=== PATIENT | female | born 1970 | race Caucasian/White ===

== ENCOUNTER → 2020-09-24 15:26 | Outpatient (CLI) | payer OTHER, BC, SELFPAY ==
--- NOTE | ~2020-09-24 | XR_ITS ---
XR_CERV2-3V_CR 09/24/2020 15:49 Indication: Cervicalgia Procedure: 4 view cervical spine Comparison: No prior studies Findings: Straightening of cervical lordosis. Vertebral body and disc heights are preserved. No fract ure or traumatic malalignment. No prevertebral soft tissue swelling. Odontoid process within normal l imits. Lung apices are normal. Impression: 1: No significant abnormality of the cervical spine. Reviewed, dictated and finalized at location B. OGY LECTURER Impression: 1: No significant abnormality of the cervical spine.
== END ==
PROVIDERS: PCP Family Medicine; Visit Provider Nurse Practitioner Family
DX: M54.2 Cervicalgia (principal)
CPT/HCPCS: 72040

== ENCOUNTER → 2020-10-02 12:33 | Outpatient (CLI) | payer OTHER, BC, SELFPAY ==
--- NOTE | ~2020-10-02 | MR_ITS ---
EXAMINATION: MR cervical spine wo con DATE: 10/02/2020 13:39 INDICATION: Neck pain. Left shoulder pain. TECHNIQUE: Magnetic resonance imaging (MRI) of the cervical spine was performed without intravenous c ontrast. Sequences included sagittal T2-weighted FSE, sagittal STIR FSE, sagittal T1-weighted FSE, ax ial MERGE, and axial T2-weighted FSE. COMPARISON: Cervical spine radiograph 09/24/2020 FINDINGS: There is mild kyphosis of cervical spine. Vertebral body heights and intervertebral disc he ights are normal. The spinal cord signal intensity is normal. The following disc levels are specifica lly discussed: C2-C3: There is a central protrusion. There is no uncovertebral joint osteoarthritis. There is ankylo sis of left facet joint with severe hypertrophy. There is mild left neural foraminal stenosis. There is mild central canal stenosis. C3-C4: The disc does not extend beyond the endplate margin. There is mild left uncovertebral joint os teoarthritis. There is mild bilateral facet joint osteoarthritis. There is mild left neural foraminal stenosis. There is no central canal stenosis. C4-C5: The disc does not extend beyond the endplate margin. There is no uncovertebral joint osteoarth ritis. There is no facet joint osteoarthritis. There is no neural foraminal stenosis. There is no pb tral canal stenosis. C5-C6: The disc is bulging. There is mild bilateral uncovertebral joint osteoarthritis. There is no f acet joint osteoarthritis. There is mild right neural foraminal stenosis. There is mild central canal stenosis. C6-C7: The disc does not extend beyond the endplate margin. There is mild left uncovertebral joint os teoarthritis. There is moderate bilateral facet joint osteoarthritis. There is no neural foraminal st enosis. There is no central canal stenosis. C7-T1: The disc does not extend beyond the endplate margin. There is no uncovertebral joint osteoarth ritis. There is mild bilateral facet joint osteoarthritis. There is no neural foraminal stenosis. The re is no central canal stenosis. IMPRESSION: 1. Mild cervical spondylosis. Reviewed, dictated and finalized at location B. 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
== END ==
PROVIDERS: PCP Family Medicine; Visit Provider Nurse Practitioner Family
DX: M48.03 Spinal stenosis, cervicothoracic region (principal); M47.23 Other spondylosis with radiculopathy, cervicothoracic region
CPT/HCPCS: 72141

== ENCOUNTER → 2022-04-19 15:52 | Outpatient (CLI) | payer OTHER, BC, SELFPAY ==
--- NOTE | ~2022-04-19 | XR_ITS ---
XR knee RT 3V, XR knee LT 3V 04/19/2022 16:17 Indication: Bilateral knee pain Procedure: 3 views each knee Comparison: No prior studies for comparison. Findings: There is anatomic alignment. No significant joint space narrowing. No fracture, subluxation or dislocation. No joint effusion. No focal soft tissue abnormality. No foreign bodies. Impression: 1: No significant bone or joint abnormality. Reviewed, dictated and finalized at location A. Impression: 1: No significant bone or joint abnormality. Impression: 1: No significant bone or joint abnormality.
== END ==
PROVIDERS: PCP Family Medicine; Visit Provider Nurse Practitioner Family
DX: M25.569 Pain in unspecified knee (principal)
CPT/HCPCS: 73562

== ENCOUNTER 2022-05-03 08:53 | Outpatient (CLI) | payer OTHER, BC, SELFPAY ==
[2022-05-03 09:25] LABS: Glucose 103 mg/dL (65-110)
== END 2022-05-03 08:54 | disposition home or self-care (01) ==
PROVIDERS: PCP Family Medicine; Visit Provider Nurse Practitioner Family
DX: R73.09 Other abnormal glucose (principal)
CPT/HCPCS: 36415; 82947

== ENCOUNTER → 2022-05-06 15:51 | Outpatient (CLI) | payer OTHER, BC, SELFPAY ==
--- NOTE | ~2022-05-06 | MR_ITS ---
EXAMINATION: MR knee RT wo con DATE: 05/06/2022 16:26 INDICATION: Right knee pain TECHNIQUE: Magnetic resonance imaging (MRI) of the right knee was performed without intravenous contr ast. Sequences included coronal PD-weighted FSE, coronal PD-weighted FS FSE, sagittal T2-weighted FS E, sagittal PD-weighted FS FSE and axial PD weighted fat saturated FSE. COMPARISON: Right knee radiographs dated 04/11/2022 FINDINGS: Medial compartment: Medial meniscus is normal. Partial-thickness chondral fissuring along the lateral side of the central weightbearing medial femoral condyle. Small region of mild subarticular edema along the medial rim o f the tibial plateau without evident overlying chondromalacia. Lateral compartment: Lateral meniscus is normal. Articular cartilage is normal. Patellofemoral compartment: Shallow partial thickness chondral ulceration and deeper fissuring at the medial patellar facet. Deep chondral ulceration with minimal underlying cortical irregularity at the caudal aspect of the medial trochlea. Ligaments and tendons: Anterior and posterior cruciate ligaments are normal. The medial collateral ligament and fibular ayana ateral ligament complex are normal. The extensor mechanism is normal. The visualized medial and later al hamstring tendons as well as the iliotibial band are normal. Fluid: Physiologic amount of fluid in the joint space. No loose osteochondral bodies identified. Osseous/other: Bone alignment is normal. No fracture or pathologic marrow replacing process. There is edema in the s uperficial suprapatellar fat pad consistent with fat pad impingement syndrome. IMPRESSION: 1. 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 2. Small region of marrow edema along the medial rim of the medial tibial plateau without evident ero gautam or fracture line which could be related to overlying appreciated high-grade chondromalacia, stre ss reaction related to altered stress distribution or post traumatic bone contusion in the appropriat e clinical setting. 3. Edema in the superficial suprapatellar fat pad which can be seen with fat pad impingement syndrome . Reviewed, dictated and finalized at location B. IMPRESSION: 1. Mild medial and patellofemoral osteoarthritis with high-grade chondral malac ia the medial trochlea and moderate grade chondromalacia along the weightbearin g medial femoral condyle and at the medial patellar facet. 2. Small region of marrow edema along the medial rim of the medial tibial plate au without evident erosion or fracture line which could be related to overlying appreciated high-grade chondromalacia, stress reaction related to altered stre ss distribution or post traumatic bone contusion in the appropriate clinical se tting. 3. Edema in the superficial suprapatellar fat pad which can be seen with fat pa d impingement syndrome.
== END ==
PROVIDERS: PCP Family Medicine; Visit Provider Nurse Practitioner Family
DX: M25.369 Other instability, unspecified knee (principal); M25.561 Pain in right knee; M17.11 Unilateral primary osteoarthritis, right knee; M94.261 Chondromalacia, right knee; M79.89 Other specified soft tissue disorders
CPT/HCPCS: 73721

== ENCOUNTER 2022-07-13 16:20 | Outpatient (CLI) | payer OTHER, BC, SELFPAY ==
--- NOTE | ~2022-07-13 | XR_ITS ---
XR knee LT 3V 07/13/2022 16:52 Indication: Left knee pain Procedure: 3 views left knee Comparison: 04/19/2022 Findings: There is anatomic alignment. No significant joint space narrowing. No fracture or traumatic malalignment. No significant joint effusion. No soft tissue abnormalities. Impression: 1: No significant bone or joint abnormality. Reviewed, dictated and finalized at location A. Impression: 1: No significant bone or joint abnormality.
== END 2022-07-13 16:21 | disposition home or self-care (01) ==
PROVIDERS: PCP Family Medicine; Visit Provider Nurse Practitioner Family
DX: M25.562 Pain in left knee (principal)
CPT/HCPCS: 73562

== ENCOUNTER 2022-08-21 08:40 | Outpatient (CLI) | payer OTHER, BC, SELFPAY ==
--- NOTE | ~2022-08-21 | MR_ITS ---
EXAMINATION: MR knee LT wo con DATE: 08/21/2022 09:22 INDICATION: Left knee pain with weightbearing, instability TECHNIQUE: Magnetic resonance imaging (MRI) of the left knee was performed without intravenous contra st. Sequences included axial PD-weighted FS FSE, coronal PD-weighted FSE and PD-weighted FS FSE, sagi ttal PD-weighted FSE, and sagittal T2-weighted FS FSE. COMPARISON: X-ray 07/13/2022. FINDINGS: Medial compartment: Mild degenerative signal change at the junction of the posterior horn and body of the medial meniscus . Suggestion of early extrusion and minimal apical blunting. Mild diffuse cartilage thinning. Lateral compartment: Meniscus intact. Mild diffuse cartilage thinning. Patellofemoral compartment: Cartilage and retinacula intact. Ligaments and tendons: ACL, PCL, MCL, and LCL are intact. Remaining flexor and extensor tendons are intact. Fluid: No significant joint effusion. Multiloculated fluid collection at the medial aspect of the knee, poss ibly emanating from the medial meniscus. Osseous/other: Mild marrow edema in the medial aspect of the medial femoral condyle. IMPRESSION: 1. Likely perimeniscal cyst emanating from the medial meniscus, as can be seen with old healed or occ ult meniscal tears. 2. Mild marrow edema in the medial aspect of the medial femoral condyle, may be secondary to degenera tive meniscal change and/or contusion depending on clinical context. 3. Mild diffuse cartilage thinning in the medial and lateral compartments. Reviewed, dictated and finalized at location K. IMPRESSION: 1. Likely perimeniscal cyst emanating from the medial meniscus, as can be seen with old healed or occult meniscal tears. 2. Mild marrow edema in the medial aspect of the medial femoral condyle, may be secondary to degenerative meniscal change and/or contusion depending on clinic al context. 3. Mild diffuse cartilage thinning in the medial and lateral compartments.
== END 2022-08-21 08:41 | disposition home or self-care (01) ==
LOC: ANHIMG 08:45
PROVIDERS: PCP Family Medicine; Visit Provider Nurse Practitioner Family
DX: M25.562 Pain in left knee (principal); M25.369 Other instability, unspecified knee
CPT/HCPCS: 73721

== ENCOUNTER 2022-09-05 12:46 | Emergency (ER) | payer OTHER, BC, SELFPAY ==
--- NOTE | ~2022-09-05 | CT_ITS ---
EXAMINATION: CT abdomen pelvis wo con DATE: 09/05/2022 13:39 INDICATION: Left flank pain TECHNIQUE: Computed tomography (CT) of the abdomen and pelvis was performed without intravenous contr ast. Automated exposure control and iterative reconstruction technique were employed. The dose-length product was 302.30 mGy-cm. COMPARISON: None FINDINGS: Lung bases are clear. Heart size is normal. No pericardial or pleural effusion. Liver, gallbladder, s pleen, pancreas, bilateral adrenal glands are normal. Kidneys and ureters are normal with no urolithi asis, hydroureteronephrosis or perinephric/ureteral stranding. There are couple small phleboliths in the right hemipelvis posterior to the right ureterovesicular junction. Bladder is normal. The uterus is not identified and has likely been surgically resected. Bowels including the appendix are normal w ith no evident wall thickening or obstruction. No free intraperitoneal gas or fluid. No pathologicall y enlarged abdominal or pelvic lymphadenopathy. Moderate osteoarthritis at the bilateral sacroiliac a nd lower lumbar facet joints. IMPRESSION: 1. No urolithiasis or other acute intra-abdominal/pelvic process. Reviewed, dictated and finalized at location B. Y TELEGRAPHER
[2022-09-05 12:50] VITALS: BP 135/88; PULSE 94; RESP 20; TEMP 37; O2SAT 97
--- NOTE | 2022-09-05 13:20 | ED.BACK ---
HPI - Back Pain/Injury General Chief Complaint: Back Pain/Injury Stated Complaint: back pain Time Seen by Provider: 09/05/22 13:14 History of Present Illness HPI Narrative: Pt presents with intermittent left flank/back pain for 3 days. Pt denies injury. Pt says that sometimes she feels like certain movements make it worse but now it seems to be constant but waxes and wanes in severity and radiates around to groin on left. Pt went to and got sent here after receiving IM toradol. Related Data Home Medications Medication Instructions Recorded Confirmed venlafaxine 37.5 mg 37.5 mg PO DAILY 02/04/21 07/14/22 capsule,extended release 24 hr (Effexor XR) Allergies Allergy/AdvReac Type Severity Reaction Status Date / Time No Known Allergies Allergy Verified 07/13/22 15:12 Review of Systems Review of Systems: All systems reviewed & are unremarkable except as noted in HPI and below PMFSH Past Medical History Medical History BMI 32.0-32.9,adult BMI 33.0-33.9,adult BMI 34.0-34.9,adult Claustrophobia Hx of retained foreign body fully removed Numbness and tingling of leg Wears glasses Surgical History Surgical History History of hysterectomy History of Mohs surgery for squamous cell carcinoma in situ of skin History of tonsillectomy Family History Family History Father Malignant neoplasm of prostate Mother No problems noted. Sibling No problems noted. 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 Gender identity (if verbalized by the patient): Female Exam Const: General: healthy appearing Nutritional Appearance: well nourished Orientation/consciousness: patient oriented x3 Limitations: no limitations Eyes: Conjunctivae: conjunctivae normal EOM: EOMs intact bilaterally Neck: Neck: normal visual inspection Resp: Effort & Inspection: normal respiratory effort Auscultation: clear to auscultation bilaterally Cardio: Rate: regular rate Rhythm: regular rhythm GI: Auscultation: normal bowel sounds Back/Spine/Pelvis: Back: CVA tenderness (left and left sided paraspinous muscle tenderness) Skin: General skin exam: normal color Rashes: no rashes Wounds: no wounds Neuro: General: patient oriented x3, moves all extremities and no focal motor deficits Cranial nerves: Yes Nystagmus not present Speech: normal speech Extrem: General: normal to inspection and no clubbing, cyanosis or edema Psych: Mental Status: mental status grossly normal Affect: normal affect Attitude: cooperative Course Vital Signs Vital signs: Vital Signs Temperature 98.6 F 09/05/22 12:50 Pulse Rate 94 09/05/22 12:50 Respiratory Rate 20 09/05/22 12:50 Blood Pressure 135/88 09/05/22 12:50 Pulse Oximetry 97 09/05/22 12:50 Oxygen Delivery Room Air 09/05/22 12:50 Temperature 98.6 F 09/05/22 12:50 Pulse Rate 94 09/05/22 12:50 Respiratory Rate 20 09/05/22 12:50 Blood Pressure 135/88 09/05/22 12:50 Pulse Oximetry 97 09/05/22 12:50 Oxygen Delivery Room Air 09/05/22 12:50 MDM - Back Pain/Injury MDM Narrative Medical decision making narrative: ct did not show kidney stone so likely muscle will treat accordingly Discharge Plan Discharge Clinical Impression: Strain of lumbar region Patient Disposition: Home, Self-Care Condition: Stable Instructions: Antibiotic Form, Acut
== END 2022-09-05 15:27 | disposition home or self-care (01) ==
PROVIDERS: Emergency Provider Emergency Medicine; PCP Family Medicine
DX: S39.012A Strain of muscle, fascia and tendon of lower back, initial encounter (principal); Z90.710 Acquired absence of both cervix and uterus; Z85.828 Personal history of other malignant neoplasm of skin; F17.210 Nicotine dependence, cigarettes, uncomplicated; X58.XXXA Exposure to other specified factors, initial encounter
CPT/HCPCS: 74176; 99284

== ENCOUNTER 2023-01-06 08:39 | Outpatient (CLI) | payer OTHER, BC, SELFPAY ==
[2023-01-06 09:28] LABS: Cholesterol 272 mg/dL (0-200); HDL Direct 52 mg/dL; Triglycerides 139 mg/dL (<150)
[2023-01-06 09:38] LABS: LDL Cholesterol Direct 166 mg/dL
[2023-01-06 09:53] LABS: Vitamin D 25 Hydroxy 46.4 ng/mL
== END 2023-01-06 08:40 | disposition home or self-care (01) ==
LOC: ANHLAB 08:40
PROVIDERS: PCP Family Medicine; Visit Provider Nurse Practitioner Family
DX: E55.9 Vitamin D deficiency, unspecified (principal); E78.2 Mixed hyperlipidemia
CPT/HCPCS: 36415; 80061; 82306

== ENCOUNTER 2023-01-13 16:33 | Emergency (ER) | payer OTHER, BC, SELFPAY ==
[2023-01-13 16:41] VITALS: BP 121/63; PULSE 88; RESP 16; TEMP 36.8; O2SAT 100
--- NOTE | 2023-01-13 16:48 | ECG_ITS ---
Measurements Intervals [place] Rate: 80 P: 54 GA: 138 QRS: 46 QRSD: 87 T: 11 QT: 360 QTc: 415 Interpretive Statements SINUS RHYTHM NONSPECIFIC ST & T-WAVE ABNORMALITY- ANTEROLAT/INF LEADS NORMAL ECG NO PREVIOUS ECG AVAILABLE FOR COMPARISON Electronically Signed On 01-14-2023 8:15:46 CDT by René Ley D.O.
--- NOTE | 2023-01-13 17:21 | ED.GENADULT ---
HPI - General Adult General Chief complaint: Extremity Injury, Upper Stated complaint: Left Arm Numbness Time Seen by Provider: 01/13/23 17:21 Source: patient, RN notes reviewed and old records reviewed Mode of arrival: ambulatory Limitations: no limitations History of Present Illness HPI narrative: 52year old female presents to [facility] care with complaints of left arm tingling and numbness which started today while sitting at her desk at work. She reports that her thumb and middle finger feel like pins and needles sticking in them. She reports no cardiac history,denies any shortness of breath,chest pain pressure or palpitations, no nausea or sweating. Pateint reports that she does have history of bulging disc in her neck. Patient reports that she has had some increase stress lately and she has been on new diet pill called Contrave for one week. MD complaint: tingling nd numbness to left arm and fingers Onset (ago): hour(s) (this afternoon) Severity scale (1-10): 1 Quality: aching Treatments prior to arrival: none Related Data Home Medications Medication Instructions Recorded Confirmed Contrave 01/13/23 Allergies Allergy/AdvReac Type Severity Reaction Status Date / Time No Known Allergies Allergy Verified 01/05/23 08:09 Review of Systems Review of Systems: CONSTITUTIONAL: Denies fever, chills, or sweats. EYES: Denies visual changes, redness, or discharge. ENT: Denies rhinorrhea, congestion, sore throat, or otalgia. CARDIOVASCULAR: Denies chest pain, palpitations, or edema. RESPIRATORY: Denies cough or dyspnea. GASTROINTESTINAL: Denies abdominal pain, nausea, vomiting, or diarrhea. GENITOURINARY: Denies dysuria or hematuria. SKIN: Denies rash or itching. MUSCULOSKELETAL: Denies back pain, joint pain, or myalgia. NEUROLOGIC: Denies headache, positive for tingling and numbness left arm and fingers, no weakness. PSYCHIATRIC: Reports history of anxiety or depression. 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 Social History Social History Smoking packs per day: 0.5 Smoking cigarettes per day: 10.0 Years smoked: 10 Smoking pack-years: 5.00 Smoking status: Current every day smoker Tobacco type: cigarettes Second hand tobacco smoke exposure: Yes Alcohol intake: current Drinks per week: 2 Substance use: never Substance use type: does not use Lack of Transportation: No Lack of Food: Never True Current Housing: I Have Housing Concerned About Future Housing: No Difficulty Paying Gas/Electric Bills: No Difficulty Paying for Meds: No Currently Unemployed: No Education: Master's Degree or Higher Living arrangements: with family Occupation/Education: occupation 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 There is no relevant family history pertinent to the presenting complaint Exam Narrative: GENERAL: Well-appearing, well-nourished, and in no acute distress. HEAD: Normocephalic, atraumatic. EYES: PERRLA and EOMI. ENT: Piedad thibodeaux
== END 2023-01-13 17:49 | disposition home or self-care (01) ==
PROVIDERS: Emergency Provider Registered Nurse; PCP Family Medicine
DX: M77.8 Other enthesopathies, not elsewhere classified (principal); F17.210 Nicotine dependence, cigarettes, uncomplicated
CPT/HCPCS: 93005; 99213; G0463

== ENCOUNTER 2023-06-29 06:43 | Day surgery (SDC) | payer OTHER, BC, SELFPAY ==
[2023-01-23 15:00] VITALS: BMI 33.3
[2023-03-23 14:17] VITALS: BMI 33.3
[2023-03-23 14:40] VITALS: BMI 33.3
--- NOTE | 2023-03-30 15:40 | P.HP_ITS ---
History of Present Illness History of Present Illness Consent: Risks, benefits, and alternatives have been discussed and questions answered. Patient agrees to proceed with procedure. Chief complaint: Neoplasm Screening Narrative: Lise Sam is a 52 year old female Referred for colon cancer screening. [facility] Past Medical History Medical History BMI 32.0-32.9,adult BMI 33.0-33.9,adult BMI 34.0-34.9,adult BMI 35.0-35.9,adult Claustrophobia Hx of retained foreign body fully removed Numbness and tingling of leg Wears glasses Surgical History Surgical History History of hysterectomy History of Mohs surgery for squamous cell carcinoma in situ of skin History of tonsillectomy Family History Family History Father Malignant neoplasm of prostate Mother Osteoarthritis Sibling No problems noted. Social History Social History Smoking packs per day: 0.5 Smoking cigarettes per day: 10.0 Years smoked: 15 Smoking pack-years: 7.50 Smoking status: Current every day smoker Tobacco type: cigarettes Second hand tobacco smoke exposure: Yes Alcohol intake: current Drinks per week: 2 Alcohol use details: occassional Substance use: never Substance use type: does not use Lack of Transportation: No Lack of Food: Never True Current Housing: I Have Housing Concerned About Future Housing: No Difficulty Paying Gas/Electric Bills: No Difficulty Paying for Meds: No Currently Unemployed: No Education: Master's Degree or Higher Living arrangements: with family Occupation/Education: occupation 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 Gender identity (if verbalized by the patient): Female Spiritual care concerns: No Meds Home Medications and Allergies Home Medications Medication Instructions Recorded Confirmed Type naltrexone 8 mg-bupropion 90 mg 1 tablet PO BID 03/23/23 03/23/23 History tablet,extended release (Contrave) Allergies Allergy/AdvReac Type Severity Reaction Status Date / Time No Known Allergies Allergy Verified 03/23/23 14:33 Assessment and Plan Assessment and plan (1) Screening for malignant neoplasm of colon: Code(s): Z12.11 - Encounter for screening for malignant neoplasm of colon Status: Acute Assessment and Plan: Colonoscopy with possible biopsy or polypectomy or cautery or injection of alvarado bstances.
--- NOTE | 2023-06-28 11:17 | P.HP_ITS ---
History of Present Illness History of Present Illness Consent: Risks, benefits, and alternatives have been discussed and questions answered. Patient agrees to proceed with procedure. Chief complaint: Neoplasm Screening Narrative: Lise Sam is a 52 year old female Referred for colon cancer screening. Review of Systems Review of Systems: All systems reviewed & are unremarkable except as noted in HPI and below PMFSH Past Medical History Medical History BMI 32.0-32.9,adult BMI 33.0-33.9,adult BMI 34.0-34.9,adult BMI 35.0-35.9,adult Claustrophobia Hx of retained foreign body fully removed Numbness and tingling of leg Wears glasses Surgical History Surgical History History of hysterectomy History of Mohs surgery for squamous cell carcinoma in situ of skin History of tonsillectomy Family History Family History Father Malignant neoplasm of prostate Mother Osteoarthritis Sibling No problems noted. Social History Social History Smoking packs per day: 0.5 Smoking cigarettes per day: 10.0 Years smoked: 15 Smoking pack-years: 7.50 Smoking status: Current every day smoker Tobacco type: cigarettes Second hand tobacco smoke exposure: Yes Alcohol intake: current Drinks per week: 2 Alcohol use details: occassional Substance use: never Substance use type: does not use Lack of Transportation: No Lack of Food: Never True Current Housing: I Have Housing Concerned About Future Housing: No Difficulty Paying Gas/Electric Bills: No Difficulty Paying for Meds: No Currently Unemployed: No Education: Master's Degree or Higher Living arrangements: with family Occupation/Education: occupation 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 Gender identity (if verbalized by the patient): Female Spiritual care concerns: No Meds Home Medications and Allergies Home Medications Medication Instructions Recorded Confirmed Type naltrexone 8 mg-bupropion 90 mg 1 tablet PO BID 03/23/23 06/29/23 History tablet,extended release (Contrave) prednisone 10 mg tablet 30 mg PO DAILY #15 tabs 04/24/23 06/29/23 Rx Allergies Allergy/AdvReac Type Severity Reaction Status Date / Time No Known Allergies Allergy Verified 06/29/23 07:14 Exam Const: General: alert Orientation/consciousness: patient oriented x3 Resp: Auscultation: clear to auscultation bilaterally Cardio: Rhythm: regular rhythm GI: GI Palp: Yes Soft to palpation and No Tenderness to palpation present (GI) Neuro: General: patient oriented x3 Assessment and Plan Assessment and plan (1) Screening for malignant neoplasm of colon: Code(s): Z12.11 - Encounter for screening for malignant neoplasm of colon Status: Acute Assessment and Plan: Colonoscopy with possible biopsy or polypectomy or cautery or injection of substances.
--- NOTE | 2023-06-29 07:21 | P.PNAN_ITS ---
Anes - Initial Pre Proc Eval Procedure: Operation Date: 06/29/23 08:30 Proposed Procedures p Screening Colonoscopy - Anthony Lowe MD Date/Time: 06/29/23 07:21 Surgeon: Anthony Lowe MD Pre Op Diagnosis: Neoplasm Screening Patient Data Age: 52 Gender: F Height: 1.65 m Weight: 91 kg Allergies Allergy/AdvReac Type Severity Reaction Status Date / Time No Known Allergies Allergy Verified 06/29/23 07:14 Home Medications Medication Instructions Recorded Confirmed Type naltrexone 8 mg-bupropion 90 mg 1 tablet PO BID 03/23/23 06/29/23 History tablet,extended release (Contrave) prednisone 10 mg tablet 30 mg PO DAILY #15 tabs 04/24/23 06/29/23 Rx Patient hx anesthesia problems: none Family hx anesthesia problems: none Results Review: All pre-operative results and documents have been reviewed as part of the pre- operative evaluation. [facility] Past Medical History Medical History BMI 32.0-32.9,adult BMI 33.0-33.9,adult BMI 34.0-34.9,adult BMI 35.0-35.9,adult Claustrophobia Hx of retained foreign body fully removed Numbness and tingling of leg Wears glasses Surgical History Surgical History History of hysterectomy History of Mohs surgery for squamous cell carcinoma in situ of skin History of tonsillectomy Family History Family History Father Malignant neoplasm of prostate Mother Osteoarthritis Sibling No problems noted. Social History Social History Smoking packs per day: 0.5 Smoking cigarettes per day: 10.0 Years smoked: 15 Smoking pack-years: 7.50 Smoking status: Current every day smoker Tobacco type: cigarettes Second hand tobacco smoke exposure: Yes Alcohol intake: current Drinks per week: 2 Alcohol use details: occassional Substance use: never Substance use type: does not use Lack of Transportation: No Lack of Food: Never True Current Housing: I Have Housing Concerned About Future Housing: No Difficulty Paying Gas/Electric Bills: No Difficulty Paying for Meds: No Currently Unemployed: No Education: Master's Degree or Higher Living arrangements: with family Occupation/Education: occupation 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 Gender identity (if verbalized by the patient): Female Spiritual care concerns: No Anes - Eval Final PreProcedure Day of Procedure 06/29/23 07:21 Patient weight: obese Heart: regular rate and rhythm Lungs: clear to auscultation Airway: Mallampati scale class II Neurological: alert and oriented Last oral intake: >/= 8 hours ASA classification: II Emergent: no Anesthetic plan: proceed Anesthesia type and monitoring: general GIVS and standard monitoring Results Review: All pre-operative results and documents have been reviewed as part of the pre- operative evaluation. Informed Consent: The patient's anesthetic plan and its attendant risks and benefits were discussed with the patient/family/POA. Questions were solicited and answers provided to the satisfaction of the patient/family/POA.
[2023-06-29 07:23] VITALS: BP 133/79; PULSE 87; RESP 16; TEMP 36.8; O2SAT 98
[2023-06-29] MEDS: LACTATED RINGERS 1,000 ML 150 ML IV CONT (07:24)
--- NOTE | 2023-06-29 08:39 | SUR.OPER ---
Resolution clip placed, [id number], [id number]
[2023-06-29 08:43] VITALS: BP 106/68; PULSE 74; RESP 16; O2SAT 94
[2023-06-29 08:53] VITALS: BP 103/75; PULSE 74; RESP 14; O2SAT 94
[2023-06-29 09:03] VITALS: BP 101/70; PULSE 72; RESP 16; O2SAT 98
--- NOTE | 2023-06-29 13:06 | WPDANESPN ---
Anes - Prog Note Post-Op Date/Time: 06/29/23 13:06 Cardiovascular status: normal Respiratory status: normal Airway patency: baseline Mental status: baseline Post-Op hydration status: normal Vital Signs: Last Vital Signs Temp 36.8 C 06/29/23 07:23 Pulse 72 06/29/23 09:03 Resp 16 06/29/23 09:03 BP 101/70 06/29/23 09:03 Pulse Ox 98 06/29/23 09:03 O2 Del Method Room Air 06/29/23 09:03 Pain Score (VAS): 0 I/O: Intake & Output 06/28/23 06/29/23 06/29/23 23:59 07:59 15:59 Intake Total 800 Balance 800 Post-procedural complaints: none Patient Feedback: Patient satisfied with anesthetic care. Other Findings: Patient vital signs back to baseline. Patient denies nausea and vomiting. Patient's pain under control. Patient OK for discharge.
== END 2023-06-29 09:25 | disposition home or self-care (01) ==
PROVIDERS: PCP Family Medicine; Visit Provider Internal Medicine Gastroenterology
PROC: 0DJD8ZZ Inspection of Lower Intestinal Tract, Via Natural or Artificial Opening Endoscopic (ICD-10-PCS; CPT 45378; principal; 2023-06-29 08:30)
DX: Z12.11 Encounter for screening for malignant neoplasm of colon (principal); D12.5 Benign neoplasm of sigmoid colon; D12.3 Benign neoplasm of transverse colon
CPT/HCPCS: 45385; 45380

== ENCOUNTER 2023-06-29 08:00 | Outpatient (NON) | payer OTHER, BC, SELFPAY | END 2023-06-29 08:01 | disposition home or self-care (01) | PROVIDERS: PCP Family Medicine; Visit Provider Internal Medicine Gastroenterology | DX: Z12.11 Encounter for screening for malignant neoplasm of colon (principal) | CPT/HCPCS: 88305 ==

== ENCOUNTER 2023-12-12 11:20 | Outpatient (CLI) | payer OTHER, BC, SELFPAY ==
--- NOTE | ~2023-12-12 | XR_ITS ---
Right Knee Technique: AP and lateral views were obtained. Clinical History: Pain Findings: No fracture or dislocation is seen. Osseous alignment is anatomic. Joint spaces are preserv ed without degenerative or erosive change. Soft tissues are unremarkable. No joint effusion is seen. Impression: Unremarkable right knee radiographs. Reviewed, dictated and finalized at [facility]. [employer]NAL FACILITIES SPECIALIST Impression: Unremarkable right knee radiographs.
== END 2023-12-12 11:21 | disposition home or self-care (01) ==
LOC: ANHIMG 11:23
PROVIDERS: PCP Family Medicine; Visit Provider Nurse Practitioner Family
DX: M25.361 Other instability, right knee (principal)
CPT/HCPCS: 73560

== ENCOUNTER 2023-12-24 08:35 | Outpatient (CLI) | payer OTHER, BC, SELFPAY ==
--- NOTE | ~2023-12-24 | MR_ITS ---
EXAMINATION: MR knee RT wo con DATE: 12/24/2023 09:00 INDICATION: Pain in unspecified knee. TECHNIQUE: Magnetic resonance imaging (MRI) of the right knee was performed without intravenous contr ast. Sequences included axial PD-weighted FS FSE, coronal PD-weighted FSE and PD-weighted FS FSE, sag ittal PD-weighted FSE, and sagittal T2-weighted FS FSE. COMPARISON: Right knee radiographs 12/12/2023 FINDINGS: Medial compartment: Medial meniscus is normal. There is a subcapital insufficiency fracture of the central articular surf freddy of femoral condyle with surrounding edema-like marrow signal intensity. There is cartilage surfac e irregularity of femoral condyle and tibial condyle. Lateral compartment: The lateral meniscus is normal. Lateral compartment cartilage is normal. Patellofemoral compartment: There is shallow partial-thickness cartilage loss of patellar medial facet. There is focal deep parti al-thickness cartilage loss of medial trochlea in an area spanning 4 mm. Ligaments and tendons: Anterior and posterior cruciate ligaments are normal. Medial collateral ligament is normal. There are changes of prior sprain of fibular collateral ligament characterized by increased signal intensity. There is mild patellar tendinopathy. Fluid: There is a small knee joint effusion. IMPRESSION: 1. Insufficiency fracture of medial femoral condyle involving the central articular surface. 2. Moderate chondrosis of patellofemoral compartment and mild chondrosis of medial compartment. 3. Small knee joint effusion. Reviewed, dictated and finalized at location A. ENT SPECIALIST IMPRESSION: 1. Insufficiency fracture of medial femoral condyle involving the central artic ular surface. 2. Moderate chondrosis of patellofemoral compartment and mild chondrosis of med ial compartment. 3. Small knee joint effusion.
== END 2023-12-24 08:36 | disposition home or self-care (01) ==
PROVIDERS: PCP Family Medicine; Visit Provider Nurse Practitioner Family
DX: M25.361 Other instability, right knee (principal); M25.569 Pain in unspecified knee; M84.451A Pathological fracture, right femur, initial encounter for fracture; M22.2X1 Patellofemoral disorders, right knee; M25.461 Effusion, right knee
CPT/HCPCS: 73721

== ENCOUNTER 2024-06-20 13:53 | Outpatient (CLI) | payer OTHER, BC, SELFPAY ==
--- NOTE | ~2024-06-20 | XR_ITS ---
EXAMINATION: [id number] DATE: 06/20/2024 14:08 INDICATION: Pain in left foot. TECHNIQUE: 3 views of left foot including standing views were obtained. COMPARISON: None. FINDINGS: Pes planus is noted. No fracture. There is mild osteoarthritis of talonavicular joint. Ther e is an enthesophyte of posterior aspect of calcaneal tuberosity. IMPRESSION: 1. Pes planus. 2. Mild osteoarthritis of talonavicular joint. Reviewed, dictated and finalized at location [facility].
== END 2024-06-20 13:54 | disposition home or self-care (01) ==
LOC: ANHIMG 13:53
PROVIDERS: PCP Family Medicine
DX: M19.072 Primary osteoarthritis, left ankle and foot (principal); M21.42 Flat foot [pes planus] (acquired), left foot
CPT/HCPCS: 73630

== ENCOUNTER 2024-08-31 07:49 | Outpatient (CLI) | payer OTHER, BC, SELFPAY ==
[2024-08-31 08:00] LABS: Basophils Absolute Auto 0.1 K/mm3 (0.0-0.1); Basophils Percent Auto 0.6 % (0.2-1.2); Eosinophils Absolute Auto 0.3 K/mm3 (0-0.3); Eosinophils Percent Auto 3.8 % (0-4.4); Hematocrit 50.3 % (37.0-47.0); Hemoglobin 17.5 g/dL (12.0-15.0); Immature Granulocyte Absolute 0.02 K/mm3 (0.00-0.031); Immature Granulocyte Percent A 0.2 % (0-0.5); Lymphocytes Absolute Auto 2.93 K/mm3 (0.9-3.2); Lymphocytes Percent Auto 32.7 % (18.3-44.2); Mean Corpuscular HGB Conc 34.8 g/dl (32-36); Mean Corpuscular Hemoglobin 34.7 pg (26-34); Mean Corpuscular Volume 99.8 fl (80-100); Monocytes Absolute Auto 0.6 K/mm3 (0.1-0.6); Neutrophils Percent Auto 55.7 % (45.5-73.1); Platelet Count Result 238 k/mm3 (150-375); Red Blood Count 5.04 M/mm3 (4.2-5.4); Red Cell Distribution Width 13.4 % (11.5-14.5)
[2024-08-31 08:12] LABS: Alanine Aminotransferase 36 U/L (6-35); Albumin Level 4.6 g/dL (3.5-5.1); Alkaline Phosphatase 49 U/L (38-126); Anion Gap 8 mmol/L (4-12); Aspartate Amino Transferase 25 U/L (14-36); Bilirubin,Total 0.8 mg/dL (0.2-1.3); Blood Urea Nitrogen 14 mg/dL (7-17); Calcium 9.4 mg/dL (8.4-10.2); Carbon Dioxide 23 mmol/L (22-30); Chloride 107 mmol/L (98-107); Cholesterol 246 mg/dL (0-200); Estimated Glomerular Filt Rate > 60; Glucose 95 mg/dL (65-110); HDL Direct 46 mg/dL; Potassium 4.2 mmol/L (3.4-5.0); Sodium 138 mmol/L (137-145); Triglycerides 152 mg/dL (<150)
[2024-08-31 08:23] LABS: LDL Cholesterol Direct 143 mg/dL
[2024-08-31 09:37] LABS: Vitamin D 25 Hydroxy 44.4 ng/mL
== END 2024-08-31 07:50 | disposition home or self-care (01) ==
PROVIDERS: PCP Family Medicine
DX: E55.9 Vitamin D deficiency, unspecified (principal); Z13.29 Encounter for screening for other suspected endocrine disorder; Z13.220 Encounter for screening for lipoid disorders; Z13.1 Encounter for screening for diabetes mellitus; Z13.0 Encounter for screening for diseases of the blood and blood-forming organs and certain disorders involving the immune mechanism
CPT/HCPCS: 36415; 80053; 80061; 82306; 84443; 85025

== ENCOUNTER 2024-10-01 16:06 | Outpatient (CLI) | payer OTHER, BC, SELFPAY ==
--- NOTE | ~2024-10-01 | DEXA_ITS ---
Bone Density Report Name: MARINA MACEDO Age: 54 Sex: Female Ethnicity: White Date of : 1970 Indication: postmenopausal; screening for osteoporosis; hysterectomy; Referring Provider: NNEKA DAUGHERTY Study: Bone densitometry was performed. Exam Date: October 01, 2024 Accession number: [id number] Bone Density: Region BMD T-score Z-score Classification AP Spine(L1-L4) 1.011 -0.3 0.6 Normal Femoral Neck (Left) 0.793 -0.5 0.4 Normal Total Hip (Left) 1.131 1.5 2.1 Normal Femoral Neck (Right) 0.788 -0.5 0.4 Normal Total Hip (Right) 1.120 1.5 2.1 Normal Total Hip Mean 1.125 1.5 2.1 Normal World Health Organization criteria for BMD impression classify patients as: Normal (T-score at or above -1.0), Osteopenia (T-score between -1.0 and -2.5), or Osteoporosis (T-score at or below -2.5). 10-year Fracture Risk: FRAX not reported because: All T-scores for Spine Total, Hip Total, Femoral Neck at or above -1.0 Clinical Information Provided by Patient: Smokes Has used the following medications: HRT (i.e. estrogen/hormone therapy) Has the following medical conditions: Hysterectomy Patient maximum height was 65 Menopause Age: 37 Drinks caffeinated beverages Onset of menses at age 16 Number of children 3 Impression: The patient has normal bone mass. The patient has risk factors, including: smoking. Discussion: BONE DENSITY IS ABOVE THE MINIMUM DESIRABLE LEVEL AT ALL SKELETAL SITES TESTED. This patient?s bone mineral density is above the minimum desirable level (T-score -1.0 or better) at all sites measured. The patient should follow a healthful lifestyle (good nutrition with adequate calcium and vitamin D, and appropriate weight-bearing exercise). Follow-Up: Consider repeating this study in 5 years or sooner if there is some new clinical indication. Reported by: MARTINA on 10/01/2024 4:48:00 PM. Reviewed, dictated and finalized at location [facility]
== END 2024-10-01 16:07 | disposition home or self-care (01) ==
LOC: ANHIMG 16:07
PROVIDERS: PCP Family Medicine
DX: Z78.0 Asymptomatic menopausal state (principal); Z13.820 Encounter for screening for osteoporosis; T07.XXXA Unspecified multiple injuries, initial encounter; Z82.62 Family history of osteoporosis; Z72.0 Tobacco use
CPT/HCPCS: 77080

== ENCOUNTER 2025-10-15 09:12 | Outpatient (CLI) | payer OTHER, BC, SELFPAY ==
--- OUTSIDE RECORDS SUMMARY | 2025-10-15 09:19 | XMS_ITS | Clinical Summary ---
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 Gender Identity Not on file Sexual Orientation Not on file Plan of Treatment Health Maintenance Due Date Last Done Comments Cervical Cancer Screening Pa p Smear (Age 30 to 64) Every 3 Years 1971 Colorectal Cancer Screening Colonoscopy (10 Years) 1971 Annual Physical 1974 Hepatitis C 1989 DTaP, Tdap and Td Vaccines ( 1 - Tdap) 1990 Hepatitis B Vaccines (1 of 3 - 19+ 3-dose series) 1990 Cervical Cancer Screening Pa p with HPV Testing (Age 30 to 64) Every 5 Years 2001 Cervical Cancer Screening wi th HPV 2001 Mammogram Screening 2011 Pneumococcal Vaccine: 50+ Years (1 of 1 - PCV) 2021 Zoster Vaccines (2 of 2) 10/08/2021 08/13/2021 COVID-19 Vaccine (4 - 2024-2 6 season) 2025 08/13/2021, 12/05/2020, 11/14/2020 Influenza Adult (#1) 2025 08/11/2016 Hepatitis A Vaccines Aged Out No long er eligible based on patient's age to complete this topic Meningococcal B Vaccine Aged Out No l onger eligible based on patient's age to complete this topic Meningococcal Vaccine Aged Out No chela shaji eligible based on patient's age to complete this topic RSV Immunizations Under 20 Months Aged Out No longer eligible b ased on patient's age to complete this topic Care Teams Captain Fire Prevention Bureau Relationship Specialty Start Date End Date None, Provider, PCP - General 10/27/21
--- OUTSIDE RECORDS SUMMARY | 2025-10-15 09:19 | XMS_ITS | Clinical Summary ---
Author Organization [facility] [address] Address [address] [place] [address] Phone Care Team Providers Care Hired Help Name Role Phone Neil Ivan MD Primary Care Provider [phone] Allergies No known active allergies Medications cyclobenzaprine (FLEXERIL) 10 mg tablet Take 10 mg by mouth as needed for muscle spasms . Active desoximetasone (TOPICORT) 0.25 % cream desoximetasone 0.25 % topical cream Active meloxicam (MOBIC) 15 mg tablet Take 1 tablet (15 mg total) by mouth daily Active betamethasone dipropionate (DEL-BETA) 0.05 % cream APPLY TO AFFECTED AREA OF TRUNK AND EXTREMITIES TWICE DAILY X2 WEEKS 12/11/19 21 Active venlafaxine XR (EFFEXOR-XR) 37.5 mg 24 hr capsuleIndicatio ns:Menopausal symptoms Take 1 capsule (37.5 mg total) by mouth daily 90 capsule 4 01/05/20 22 Active Additional Information Patient not taking.Reported on 01/10/2025 spironolactone (ALDACTONE) 100 mg tablet Take 1 tablet (100 mg total) by mouth daily 01/03/20 25 Active Active Problems Problem Noted Date Diagnosed Date Actinic keratosis 09/06/2018 Melanocytic neoplasm of skin 01/10/2017 History of basal cell carcinoma (BCC) 11/30/2016 Skin neoplasm 11/30/2016 Benign neoplasm of skin of trunk 11/30/2016 Obesity with body mass index 30 or greater 11/10 Overview (01/27/2017): BMI 30+ - obesity Basal cell carcinoma of skin 01/21/2015 Fibrocystic breast changes 09/03/2013 Overview (01/27/2017): Fibrocystic breast changes Immunizations Immunization Administration Dates Next Due Influenza, Trivalent, Preservative Free, Intramu scular 08/11/2016 Surgical History Surgery Date Site/Laterality Comments OTHER SURGICAL HISTORY Swallowed priyank: Exploratory laparotomy TONSILLECTOMY/ADENOIDECTOMY WISDOM TOOTH EXTRACTION TOTAL ABDOMINAL HYSTERECTOMY Menorrhagia, dysmenorrhea: Hysterectomy: MANSI-LSO URETHRAL SLING 10/23/2023 - 10/22/2024 SALPINGOOPHORECTOMY Left at time of hysterectomy Medical History Medical History Date Comments Hx Other Medical 1972 Swallowed priyank Hx Other Medical 2005 Menorrhagia, dy smenorrhea Family History Medical History Relation Name Comments Prostate cancer Father Cancer, pros christensen; Prostate cancer Father's Brother Heart attack Maternal Grandfather Myocard ial infarction; Diabetes Other 1 Family history of Diabetes mellitus; Other Other 2 No family histo ry of Cancer, breast; Prostate cancer Paternal Grandfather Relation Name Status Comments Father Father's Brother Maternal Grandfather Alive Other 1 Other 2 Paternal Grandfather Social History Tobacco Use Types Packs/Day Years Used Date Smoking Tobacco: Every Day Cigarettes Smokeless Tobacco: Never Tobacco Cessation:Ready to Q uit: Not Asked; Counseling Given: Not Answered Comments:Smoking History Packs/day: 2 Cigarettes Alcohol Use Standard Drinks/Week Comments No 0 (1 standard drink = 0.6 oz pur e alcohol) Comments No Sex and Gender Information Value Date Recorded Sex Assigned at Not on file Legal 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 Gender Identity Female 11/13/2020 11:25 AM 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 Sexual Orientation Straight 11/13/2020 11 :25 AM 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 Not on file Not on file Obstetrics History Para Term AB IAB SAB Ectopic Multiple Livin g Live Births 3 3 3 0 0 3 Date Outcome GA Total Labor Labor/2nd/3rd Weight Sex Type Anes PTL Kaye A1 A5 Name Clin Term Term Term Last Filed Vital Signs Vital Sign Reading Time Taken Comments Blood Pressure 110/62 01/10/2025 3:32 PM CDT Pulse 92 11/04/2020 11:45 AM 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 Temperature 36.3 C (97.3 F) 03/11/2021 9:12 AM CDT Respiratory Rate - - Oxygen Saturation 97% 10/04/2019 7:40 AM 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 Inhaled Oxygen Concentration - - Weight 74.4 kg (164 lb) 01/10/2025 3:32 PM CDT Height 162.6 cm (5' 4) 01/10/2025 3:32 PM CDT Body Mass Index 28.15 01/10/2025 3:32 PM CDT Plan of Treatment Health Maintenance Due Date Last Done Comments Colon Cancer Screening-Colonoscopy 1971 Depression Screening 1971 Hepatitis C Screening 1971 DTaP/Tdap/Td Vaccine (1 - Tdap) 1982 Hepatitis B Screening 1989 Pneumococcal vaccine <65 (1 of 2 - PCV) 1990 Zoster Vaccine (1 of 2) 2021 Influenza Vaccine (#1) 2025 08/11/2016 Breast Cancer Screening-Mammogram 01/10/2026 01/10/2025, 01/10/2024, 01/05/2023, Additional history exists Regular Well Visit/Exam 18-64 01/10/2026, 01/10/2024, 01/05/2023, Additional history exists Procedures Procedure Name Priority Date/Time Associated Diagnosis Comments SCREENING MAMMOGRAM BILATERAL W NICHOLAS Schedule Routine, Read Routine (OP Routine) 01/10/2025 3:15 PM CDT Encounter for screening mammogram for malignant neoplasm of breast from Last 3 Months or Most Recently Relevant to Health Maintenance Results * Screening Mammogram Bilateral W Nicholas (01/10/2025 3:15 PM CDT) Anatomical Region Laterality Modality Breast Bilateral Mammography 01/10/2025 4:37 PM CDT Impressions 01/10/2025 4:37 PM CDT There is no mammographic evidence of malignancy. A 1 year screening mammogram is recommended. BI-RADS: 1 - Negative. The patient has been or will be contacted. The patient will be entered into a reminder system with a target due date of 1 year for her next mammogram. Electronically signed by: Ambreen Kern M.D. Narrative 01/10/2025 4:37 PM CDT EXAMINATION: SCREENING MAMMOGRAM BILATERAL W NICHOLAS ORDERING HEALTHCARE PROVIDER: CAMILA DONNELLY HISTORY: Routine screening mammography. COMPARISON: 01/10/2024, 01/05/2023, 01/04/2022, 01/04/2021, 01/03/2020 TECHNIQUE: CC and MLO views of the bilateral breasts were obtained with digital technique using breast tomosynthesis with C view. Computer aided detection was utilized. FINDINGS: DENSITY: The breasts are heterogeneously dense, which may obscure small masses. BREASTS: There are no suspicious masses, suspicious calcifications, or other suspicious findings in either breast. There has been no suspicious interval change. us Camila Donnelly MD IMG MAMMO PROCEDURES Final Result from Last 3 Months or Most Recently Relevant to Health Maintenance Insurance [facility] CHOICE PLUS [facility] OOS [facility] CHOICE PLUS [facility] CIGNA HEALTHCARE [facility] CHOICE OOS [facility] CHOICE PLUS Care Teams Hired Help Relationship Specialty Start Date End Date Neil Ivan MD PCP - General 11/01/07
--- OUTSIDE RECORDS SUMMARY | 2025-10-15 09:19 | XMS_ITS | Data Portability ---
Author Organization [facility], Telehealth Address [address], [address] [place] [address] Care Team Providers Care Sole Splitter Name Role Phone ROQUE CARMONA Primary Care Provider Assessment Encounter Date Assessment Date Assessment LastModified by Organization Details LastModified Time 05/13/2021 05/13/2021 Seborrheic keratoses - diagnosis reviewed. Pt reassured. Discussed no treatment needed. Benign nevi-discussed not suspicious Angioma - diagnosis reviewed. Patient reassured. Discussed no treatment needed. 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 Use of a broad-spectrum sunscreen SPF 30 or higher recommended. 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 Discussed treatment may be ineffective. Patient elects cryotherapy Cryotherapy x 1 Recommend allow to heal and once healed start otc varun acid soln or gel qd-qod with bandage SK vs lentigo, forehead Not suspicious Recommend monitor for changes Benign nevi-discussed not suspicious Epidermal cyst, noninflamed- diagnosis reviewed. Discussed no treatment needed. History of nonmelanoma skin cancer-no evidence of recurrence fbse 6 mo Photoprotection discussed. Use of a broad-spectrum sunscreen SPF 30 or higher recommended. Not available 11/20/2021 18:07:12 05/16/2022 05/16/2022 Seborrheic keratosis, R medial distal thigh - diagnosis reviewed. Pt reassured. Discussed no treatment needed. Small SK favored, less likely lentigo, central forehead Not suspicious Recommend monitor for changes Benign nevi-discussed not suspicious Angioma - diagnosis reviewed. Patient reassured. Discussed no treatment needed. 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 Use of a broad-spectrum sunscreen SPF 30 or higher recommended. Not available 05/16/2022 11:30:53 11/17/2022 11/17/2022 Verruca vulgaris Site: L palmar 4th finger Discussed viral etiology and contagious nature Discussed possible spontaneous resolution, treatment with otc topical salcyclic acid or cryotherapy. Discussed treatment may be ineffective. Patient elects cryotherapy Cryotherapy x 1 Recommend allow to heal and plan to restart otc varun acid soln or gel qd-qod until resolved Tinea pedis, L plantar and medial ankle-flaring Discussed diagnosis Recommend treatment with antifungal cream on the L medial ankle and bilateral plantar feet Benign nevi-discussed not suspicious Recommend monitor for changes. Angioma - diagnosis reviewed. Patient reassured. Discussed no treatment needed. 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 Use of a broad-spectrum sunscreen SPF 30 or higher recommended. Not available 11/20/2022 16:56:22 04/13/2023 04/13/2023 Folliculitis, buttocks-flaring Discussed diagnosis Discussed option oral or topical abx. Pt elects topical treatment. Recommend use of clindamycin lotion BID with flares Recommend use of benzoyl peroxide 5% wash qd in shower Benign nevi-discussed not suspicious Recommend monitor for changes. Lentigines - diagnosis reviewed. Recommend avoid sun exposure and use sun protection. Recommend monitor for changes. Angioma - diagnosis reviewed. Patient reassured. Discussed no treatment needed. 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 Use of a broad-spectrum sunscreen SPF 30 or higher recommended. Not available 04/13/2023 11:48:36 Plan of Treatment Reminders Order Date Submit Date Provider Last Modified By Organization Details Last Modified Time Details Appointments None recorded. Lab pathology, skin 2021 022 [email or web address], [address], [place], [address], 2 12:06:31 Referral None recorded. Procedures None recorded. Surgeries None recorded. Imaging None recorded. Medication Orders clindamycin 1 % lotion 2022 023 [id number], [address] [place], [address], 3 11:49:14 Naftin 1 % topical gel 2022 023 [email or web address], [facility]5 [facility], [place], [address], 3 14:27:07 Patient TargetsNo targets recorded. Patient InstructionsNo instructions recorded. Reason for Referral None Reported. Results Created Date Observation Date Name Description Value Unit Range Abnormal Flag Note LastModifiedBy Organization Detail LastModifiedTime Result Notes None recorded. Problems Name Problem SNOMED Code Status Onset Date Resolution Date Notes Provider Name and Address Organization Details Recorded Time Basal cell carcinoma of skin 198858464 Active 10/2019 L medial lower eyelid-[facility] han[facility], 11/2016 R shoulder-s up BCC -cx3(bx with Dr. 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 Procedures Surgical History Date Name Laterality Status Provider Name and Address Organization Details Recorded Time 3 Cryosurgery benign lesions 1 completed Sofia Mckeon MD [address] [place] [address], [address], [place], [address], ARTURO Mckeon MD 11/20/2022 16:56:32 2 Cryosurgery benign lesions 1 completed Sofia Mckeon MD [address] [place] [address], [address], [place], [address], ARTURO Mckeon MD 11/20/2021 18:06:34 2 Shave Biopsy single completed Vishal Mckeon MD 11/15/2021 12:09:55 1 Shave Biopsy single completed Sofia Mckeon MD [address] [place] [address], [address], [place], [address], ARTURO Mckeon MD 11/12/2020 18:05:20 8 biopsies- multiple 1 completed Kailey Mckeon MD 11/30/2017 12:01:06 7 cx3 completed Sofia Mckeon MD [address] [place] [address], [address], [place], [address], ARTURO Mckeon MD 01/22/2017 00:17:58 Imaging Results None recorded. Procedure Notes None recorded. Medical Equipment None Reported. Allergies No known drug allergies Medications Name Sig Start Date Stop Date Status Note LastModified by Organization Details LastModified Time cyclobenzap rine 10 mg tablet 10 MG ORALLY THREE TIMES A DAY 2022 active Not Available Not Available Not Avai lable venlafaxine ER 37.5 mg capsule,ext ended release 24 hr TAKE 1 CAPSULE BY MOUTH EVERY DAY active Not Available Not Available No t Available prednisone 10 mg tablet TAKE 3 TABLETS BY MOUTH EVERY DAY active Not Available Not Available No t Available desoximetas one 0.25 % topical cream use to affected areas on the trunk and extremiti es BID x 2 wks with flares 12/11 completed Not Available Not Available Not Available azithromyci n 250 mg tablet 09/06 completed Not Available Not Available Not Available hydrocodone 5 mg-acetamin ophen 325 mg tablet TAKE 1 TABLET BY MOUTH EVERY 6 HOURS NEEDED FOR PAIN 04/13 completed Not Available Not Available Not Available Naftin 1 % topical gel use to the bottoms of feet and inner L ankle bid x 4 wks with flares 2022 active Not Available Not Available Not Avai lable Claritin 10 mg tablet Take 1 tablet every day by oral route. 04/13 completed Not Available Not Available Not Available meloxicam 15 mg tablet TAKE 1 TABLET BY MOUTH EVERY DAY active Not Available Not Available No t Available prednisone 20 mg tablet TAKE 1 TABLET BY MOUTH TWICE A DAY 04/13 completed Not Available Not Available Not Available clobetasol 0.05 % topical cream PLEASE SEE ATTACHED FOR DETAILED DIRECTION S 04/13 completed Not Available Not Available Not Available phentermine 37.5 mg tablet 04/13 completed Not Available Not Available Not Available Efudex 5 % topical cream APPLY A SUFFICIEN T AMOUNT TO COVER THE LESIONS IN THE AFFECTED AREA(S) BY TOPICAL ROUTE 2 TIMES PER DAY x 2 wks on the forehead 07/18 completed Not Available Not Available Not Available erythromyci n 5 mg/gram (0.5 %) eye ointment 05/16 completed Not Available Not Available Not Available betamethaso ne dipropionat e 0.05 % topical cream APPLY TO AFFECTED AREA OF TRUNK AND EXTREMITI ES TWICE DAILY X2 WEEKS 05/16 completed Not Available Not Available Not Available cefuroxime axetil 500 mg tablet 01/17 completed Not Available Not Available Not Available phentermine 37.5 mg capsule TAKE 1 CAPSULE BY MOUTH EVERY DAY MUST TAKE 30 MIN BEFORE OR 1-2 HRS AFTER BREAKFAST 04/13 completed Not Available Not Available Not Available naproxen 500 mg tablet TAKE 1 TABLET BY MOUTH TWICE A DAY 04/13 completed Not Available Not Available Not Available amoxicillin 875 mg-potassiu m clavulanate 125 mg tablet 07/18 completed Not Available Not Available Not Available clindamycin 1 % lotion USE TO THE AFFECTED AREAS ON THE BUTTOCKS ONCE TO TWICE DAILY WITH FLARES active Not Available Not Available No t Available hydrocodone 5 mg-acetamin ophen 300 mg tablet 05/11 completed Not Available Not Available Not Available Naftin 2 % topical gel Use to L medial ankle and bottoms of feet BID x 4 wks 04/13 completed Not Available Not Available Not Available Contrave 8 mg-90 mg tablet,exte nded release TAKE 1 TABLET BY MOUTH TWICE A DAY FOR 2 WEEKS, THEN INCREASE TO 2 TABS TWICE DAILY active Not Available Not Available No t Available Wegovy 0.25 mg/0.5 mL subcutaneou s pen injector 04/13 completed Not Available Not Available Not Available Wegovy 0.5 mg/0.5 mL subcutaneou s pen injector 04/13 completed Not Available Not Available Not Available Flowflex COVID-19 Antigen Home Test kit 04/13 completed Not Available Not Available Not Available Vitals None Recorded Social History Question Answer Notes LastModified by Organizat ion Details LastModified Time Tobacco Smoking Status Former Smoker Noemi martinez, [facility] Mckeon MD 01/06/2017 10:52:05 In The 14 Days Before Symptom Onset, Have You Had Close Contact With A Laboratory-confirm ed COVID-19 While That Case Was Ill? No [email or web address] Information n ot available 05/11/2020 In The 14 Days Before Symptom Onset, Have You Had Close Contact With A Person Who Is Under Investigation For COVID-19 While That Person Was Ill? No [email or web address] Information not available 05/11/2020 Have You Been To An Area Known To Be High Risk For COVID-19? No [email or web address] Information not available 05/11/2020 Does Patient Have Any Fever, Cough, Sore Throat Or New Shortness Of Breath? No [email or web address] Information not available 05/11/2020 What Was The Date Of Your Most Recent Tobacco Screening? 11/15/2021 [email or web address] Information not available 11/15/2021 How Much Tobacco Do You Smoke? No Information not available 11/12/2020 Sun Exposure Moderate Information not available 01/06/2017 Do You Use Sunscreen Routinely? Yes Information not available 01/06/2017 Tanning Bed Exposure Yes Information not available 01/06/2017 How Many Years Have You Smoked Tobacco? 10 Information not available 01/06/2017 Sex: Unknown Functional Status Question Answer Note LastModified by Organizat ion Details LastModified Time What is your level of alcohol consumption? Occasional Information not available 01/06/2017 Do you or have you ever used smokeless tobacco? Never used smokeless tobacco Information not available 11/12/2020 Do you or have you ever used e-cigarettes or vape? Never used electronic cigarettes Information not available 11/12/2020 Mental Status None recorded. Family History Relationship Description Onset Age of this Age Resolved Age Notes LastModified by Organization Details LastModified Time Father Carcinoma of prostate Not available 2016 10:51:36 Paternal Uncle Malignant neoplasm of esophagus Not available 2016 10:51:53 Medical History Condition Response Diabetes N Bleeding Disorder N Arthritis N Hyperthyroidism N Defibrillator N Cancer Y Stroke N Asthma N Hypothyroidism N Lupus N HIV/AIDS N Pacemaker N Anemia N Psoriasis N Hepatitis N Heart Disease N Hypertension N Gynecological HistoryNo gynecological history recorded. 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 Melanocyti c nevus of trunk 861341931 D22.5 Melanocyti c nevus of face 587382515 D22.30 History of malignant neoplasm of skin excluding melanoma 435548472 Z85.828 [id number] Sofia Mckeon MD Main Office [address] [place] [address] 7 11/30/2017 10:51:50 11/30/2017 12:33:30 Neoplasm of uncertain behavior of skin 51056012 D48.5 Melanocyti c nevus of trunk 617931277 D22.5 Senile hyperkeratosis 39 2147050 L82.1 History of malignant neoplasm of skin excluding melanoma 134886091 Z85.828 [id number] Sofia Mckeon MD Main Office [address] [place] [address] 69572-843 7 07/16/2018 10:21:18 07/16/2018 11:25:24 Melanocytic nevus of face 625799602 D22.30 Melanocyti c nevus of trunk 613292087 D22.5 Melanocyti c nevus of skin of thigh 677186599 D22.72 Senile hyperkeratosis 39 2474449 L82.1 History of malignant neoplasm of skin excluding melanoma 705701329 Z85.828 [id number] Sofia Mckeon MD Main Office [address] [place] [address]79[address]613 7 09/06/2018 13:53:07 09/06/2018 14:26:54 Actinic keratosis 437273192 L57.0 [id number] Sofia Mckeon MD Main Office [address] [place] [address] 47978[address] 7 01/14/2019 11:07:42 01/14/2019 12:05:08 Eczema 50543672 L20.84 Melanocyti c nevus of trunk 772703736 D22.5 Melanocyti c nevus of upper limb 630502849 D22.61 History of malignant neoplasm of skin excluding melanoma 279049630 Z85.828 [id number] Sofia Mckeon MD Main Office [address] [place] [address] 83559[address] 7 07/18/2019 10:43:26 07/18/2019 11:08:43 Neoplasm of uncertain behavior of skin 54308957 D48.5 Melanocyti c nevus of trunk 885674752 D22.5 Senile hyperkeratosis 39 6065869 L82.1 History of malignant neoplasm of skin excluding melanoma 385232238 Z85.828 [id number] Sofia Mckeon MD Main Office [address] [place] [address]757[address] 7 05/11/2020 15:49:06 05/11/2020 16:29:29 Eczema 36640757 L20.84 Hemangioma of skin 72862 006 D18.01 Verruca vulgaris 4375102 3 B07.8 History of malignant neoplasm of skin excluding melanoma 164845717 Z85.828 [id number] Sofia Mckeon MD Main Office [address] [place] [address] 63567-681 7 11/12/2020 13:51:47 11/12/2020 14:28:47 Neoplasm of uncertain behavior of skin 15214683 D48.5 Melanocyti c nevus of trunk 082597678 D22.5 Hemangioma of skin 79674 006 D18.01 History of malignant neoplasm of skin excluding melanoma 722782538 Z85.828 [id number] Sofia Mckeon MD Main Office [address] [place] [address] 57345[address]139 7 12/10/2020 15:19:45 12/10/2020 15:42:54 Eczema 57947708 L20.84 Inflamed s eborrheic keratosis 655707675 L82.0 [id number] Sofia Mckeon MD Main Office [address] [place] [address]282[address]788 7 05/13/2021 10:19:00 05/13/2021 10:42:59 Senile hyperkeratosis 554758922 L82.1 Melanocyti c nevus of trunk 256879923 D22.5 Hemangioma 805750466 D18 .00 History of malignant neoplasm of skin excluding melanoma 355143966 Z85.828 [id number] Sofia Mckeon MD Main Office [address] [place] [address] 12065[address]860 7 11/15/2021 11:38:53 11/15/2021 12:32:52 Neoplasm of uncertain behavior of skin 51887815 D48.5 Epidermoid cyst of skin 902875865 L72.0 History of malignant neoplasm of skin excluding melanoma 876555365 Z85.828 Verruca vulgaris 5494523 3 B07.8 [id number] Sofia Mckeon MD Main Office [address] [place] [address] 60954[address] 7 05/16/2022 11:13:18 05/16/2022 11:43:29 Senile hyperkeratosis 817965847 L82.1 Melanocyti c nevus of upper limb 707068833 D22.62 Hemangioma of skin 57541 006 D18.01 History of malignant neoplasm of skin excluding melanoma 675462245 Z85.828 [id number] Sofia Mckeon MD Main Office [address] [place] [address] 08505-217 7 11/17/2022 09:57:58 11/17/2022 10:37:39 Verruca vulgaris 23126388 B07.8 Tinea pedis 7587296 B35. 3 Melanocyti c nevus of trunk 880699880 D22.5 History of malignant neoplasm of skin excluding melanoma 812490146 Z85.828 [id number] Sofia Mckeon MD Main Office [address] [place] [address] 06377-996 7 04/13/2023 10:37:28 04/13/2023 11:51:50 Folliculitis 54073082 L73.8 Melanocyti c nevus of trunk 960572196 D22.5 Lentigo 295688624 L81.4 History of malignant neoplasm of skin excluding melanoma 988522708 Z85.828 Health Concerns Section Related Observation LastModified by Organization Detai ls LastModified Time None Recorded Concern Status LastModified by Organization Details LastModified Time None Recorded Advance Directives Directive None Recorded Payers Insurance Date Sequence Insurance Name Policy Number Policy Bruno Covered Member ID Bruno Member ID Guarantor Name 01/14/2019 1 [employer] [id number] Rupert Sam [id number] Lise Sam 04/20/2023 2 [facility] [facility] [id number] Rupert Sam [id number] Lise Sam 04/20/2023 1 [id number] Lise Sam [id number] Lise Sam Notes Date Note Type Note Provider Name and Address Organization Details Recorded Time 05/13/2021 text/html ROS as noted in the HPI COVID-19 protocol. Patient and any caregivers present screened to confirm no fever, cough, loss of taste or smell, or shortness of breath. Patient and any caregivers deny current diagnosis or pending testing of COVID-19 or recent exposure to any individual with known or current testing for COVID-19. Patient and caregivers masked while in office. full body checkno concerns no other bleeding spots, changing moles, or sores that don't want to heal. Sofia Mckeon MD [address] [place] [address], [facility] [address], [place], [address], ARTURO Mckeon MD 05/15/2021 23:05:47 11/15/2021 text/html ROS as noted in the HPI COVID-19 protocol. Patient and any caregivers present screened to confirm no fever, cough, loss of taste or smell, or shortness of breath. Patient and any caregivers deny current diagnosis or pending testing of COVID-19 or recent exposure to any individual with known or current testing for COVID-19. Patient and caregivers masked while in office. full body checkno concerns wart on the R handhas been using varun acid solution but persistent and bothersome with location no other bleeding spots, changing moles, or sores that don't want to heal. Sofia Mckeon MD [address] [place] [address], [address], [place], [address], ARTURO Mckeon MD 11/20/2021 18:07:53 05/16/2022 text/html ROS as noted in the HPI COVID-19 protocol. Patient and any caregivers present screened to confirm no fever, cough, loss of taste or smell, or shortness of breath. Patient and any caregivers deny current diagnosis or pending testing of COVID-19 or recent exposure to any individual with known or current testing for COVID-19. Patient and caregivers masked while in office. full body check spot R medial thighx not sure how longno symptomsnot treating no other bleeding spots, changing moles, or sores that don't want to heal. Sofia Mckeon MD [address] [facility], [address], [place], [address], ARTURO Mckeon MD 05/17/2022 23:50:06 11/17/2022 text/html ROS as noted in the HPI COVID-19 protocol. Patient and any caregivers present screened to confirm no fever, cough, loss of taste or smell, or shortness of breath. Patient and any caregivers deny current diagnosis or pending testing of COVID-19 or recent exposure to any individual with known or current testing for COVID-19. Patient and caregivers masked while in office. Full body check spot on palm side of left fingerx 3 monthsno symptomsTx: otc wart medication with some help also with new scaly area on the inside of the L anklex 2 monthsno treatment no other bleeding spots, changing moles, or sores that don't want to heal. Sofia Mckeon MD [address] [facility], [address], [place], [address], ARTURO Mckeon MD 11/20/2022 16:58:42 04/13/2023 text/html ROS as noted in the HPI Full Body skin examination No concerns just overall examination wondering options for anti-aging regimen on the face also breaking out more on the buttocksshe thinks this is related to increased sweating with gardeningno current treatment no other bleeding spots, changing moles, or sores that don't want to heal. Sofia Mckeon MD [address] [facility], [address], [place], [address], ARTURO Mckeon MD 04/16/2023 17:19:00 OBGyn Episode No OBEpisode recorded.
--- OUTSIDE RECORDS SUMMARY | 2025-10-15 09:19 | XMS_ITS | Clinical Summary ---
Author Organization [facility] Address [address] [place] [address] Care Team Providers Care Director Of Business Continuity Name Role Phone Unavailable Primary Care Provider Unavailabl e Source Comments [facility],non-owned Affiliates and Associated Physician Practices is amultiple site organization consisting of ambulatory clinics and hospital sitesin [place], [place], [place] and [place]. This disclosure is being madepursuant to the Care Everywhere program and may not contain all information available regarding this patient. Last updated 18.COGEON Allergies No known active allergies Medications * Be aware that medications may not be up to date on this document. Alwaysverify current medications with the patient. fluorouracil (EFUDEX) 5 % cream Apply to affected area 2 times daily Active Social History Tobacco Use Types Packs/Day Years Used Date Smoking Tobacco: Never Smokeless Tobacco: Never Comments No Sex and Gender Information Value Date Recorded Sex Assigned at Not on file Legal Sex Female 11:08 AM [employer] Gender Identity Not on file Sexual Orientation Not on file Last Filed Vital Signs Vital Sign Reading Time Taken Comments Blood Pressure 110/70 10/12/2018 3:14 PM [employer]ICIAN Pulse 84 10/12/2018 3:14 PM [employer]IAN Temperature 36.9 C (98.4 F) 10/12/2018 3:14 PM [employer]CH[employer]ICIAN Respiratory Rate 16 10/12/2018 3:14 PM [employer] TECH[employer]ICIAN Oxygen Saturation 98% 10/12/2018 3:14 PM [employer]CH[employer]IAN Inhaled Oxygen Concentration - - Weight 81.6 kg (180 lb) 10/12/2018 3:14 PM [employer] TECHNICIAN Height 162.6 cm (5' 4) 10/12/2018 3:14 PM [employer]CH[employer]ICIAN Body Mass Index 30.9 10/12/2018 3:14 PM [employer] TECHNICIAN Plan of Treatment Health Maintenance Due Date Last Done Comments COLOGUARD (AGES 45-75) - COL ON CA SCREENING 1971 COLON MONITORING 1971 COLONOSCOPY - COLON CA SCREENING 1971 CT COLONOGRAPHY - COLON CA SCREENING 1971 Colorectal Cancer Screening 1971 FIT - COLON CA SCREENING 1971 FLEX SIG - COLON CA SCREENING 1971 LIPID TESTING 1971 MAMMOGRAM 1971 HIV SCREENING 1986 HEPATITIS C SCREENING 08/01/1989 DTAP/TDAP/TD VACCINES (1 - Tdap) 1990 HEPATITIS B VACCINE (1 of 3 - 19+ 3-dose series) 1990 SCREENING FOR DIABETES 10/12/2018 PNEUMOCOCCAL VACCINE 50+ (1 of 1 - PCV) 2021 ZOSTER VACCINE (1 of 2) 2021 DEPRESSION SCREENING 10/23/2024 COVID-19 VACCINE (1 - 2024-2 6 season) 2025 INFLUENZA VACCINE (#1) 2025 HIB VACCINE Aged Out No longer eligi ble based on patient's age to complete this topic HPV VACCINE Aged Out No longer eligi ble based on patient's age to complete this topic MENINGOCOCCAL (Group B) VACC INE SHARED DECISION-MAKING Aged Out No longer eligibl e based on patient's age to complete this topic MENINGOCOCCAL GROUPS A/C/Y/W VACCINE Aged Out No longer eligible b ased on patient's age to complete this topic Insurance [facility], [facility]
[2025-10-15 09:34] LABS: Hematocrit 48.8 % (37.0-47.0); Hemoglobin 17.0 g/dL (12.0-15.0); Mean Corpuscular HGB Conc 34.8 g/dl (32-36); Mean Corpuscular Hemoglobin 34.9 pg (26-34); Mean Corpuscular Volume 100.2 fl (80-100); Platelet Count Result 238 k/mm3 (150-375); Red Blood Count 4.87 M/mm3 (4.2-5.4); White Blood Count 7.3 K/mm3 (4.5-10.0)
[2025-10-15 09:57] LABS: Alanine Aminotransferase 19 U/L (6-35); Albumin Level 4.5 g/dL (3.5-5.1); Alkaline Phosphatase 47 U/L (38-126); Anion Gap 8 mmol/L (4-12); Aspartate Amino Transferase 27 U/L (14-36); Bilirubin,Total 1.2 mg/dL (0.2-1.3); Blood Urea Nitrogen 10 mg/dL (7-17); Calcium 9.2 mg/dL (8.4-10.2); Carbon Dioxide 23 mmol/L (22-30); Chloride 107 mmol/L (98-107); Cholesterol 267 mg/dL (0-200); Estimated Glomerular Filt Rate > 60; Glucose 85 mg/dL (65-110); HDL Direct 48 mg/dL; Potassium 3.9 mmol/L (3.4-5.0); Sodium 138 mmol/L (137-145); Total Protein 7.5 g/dL (6.3-8.2); Triglycerides 108 mg/dL (<150)
[2025-10-15 10:32] LABS: Thyroid Stimulating Hormone 0.761 uIU/mL (0.465-4.680)
== END 2025-10-15 09:13 | disposition home or self-care (01) ==
LOC: ANHLAB 09:16
PROVIDERS: PCP Family Medicine; Visit Provider Nurse Practitioner Family
DX: E78.2 Mixed hyperlipidemia (principal); R73.03 Prediabetes; R63.5 Abnormal weight gain; E55.9 Vitamin D deficiency, unspecified; Z78.0 Asymptomatic menopausal state
CPT/HCPCS: 36415; 80053; 80061; 82306; 84443; 85027